=== PATIENT | male | born 1970 | race Caucasian/White ===

== ENCOUNTER 2019-06-16 17:22 | Emergency (ER) | payer MEDICAID ==
[~2019-06-16] VITALS: Ht 185.4 cm; Wt 97.7 kg
[~2019-06-16 17:22] MED LIST: HYDROCODON-ACE1 EAC6 PO; HYDROCODONE-APA1 TAB PO; LISINOPRIL10 MG PO; NEXIUM40 MG PO
[2019-06-16 17:35] VITALS: Ht 185.4 cm; Wt 97.7 kg
[2019-06-16 22:53] LABS: BASOPHILS 1.2 % (0-2); EOSINOPHILS 6.6 % (0-7); HEMATOCRIT 33.3 % (42.0-54.0); HEMOGLOBIN 11.6 g/dL (13.5-17.5); IMMATURE GRANULOCYTES 0.2 % (0-5); LYMPHOCYTES 44.4 % (15-50); MCH 31.7 pg (26.0-34.0); MCHC 34.8 g/dL (31.0-37.0); MEAN PLATELET VOLUME 8.8 fL (7.4-10.4); NEUTROPHILS 38.6 % (40-80); PLATELET COUNT 287 10x3/uL (130-400); RBC 3.66 10x6/uL (4.20-6.10); RDW 12.8 % (11.5-14.5); WBC 6.1 10x3/uL (4.8-10.8)
[2019-06-16 22:59] LABS: APPEARANCE CLEAR (CLEAR); BILIRUBIN NEGATIVE (NEGATIVE); COLOR YELLOW (YELLOW); GLUCOSE NEGATIVE (NEGATIVE); KETONE NEGATIVE (NEGATIVE); NITRITE NEGATIVE (NEGATIVE); PROTEIN NEGATIVE (NEGATIVE); UROBILINOGEN NORMAL (NORMAL)
[2019-06-16 23:11] LABS: ALBUMIN 3.2 g/dL (3.4-5.0); ALKALINE PHOSPHATASE 123 U/L (46-116); ALT (SGPT) 34 U/L (10-68); BILIRUBIN - TOTAL 0.26 mg/dL (0.2-1.3); CALC OSMOLALITY 286 mosm/kg (275-300); CALCIUM 8.2 mg/dL (8.5-10.1); CARBON DIOXIDE 31.3 mmol/L (21.0-32.0); CHLORIDE - SERUM 105 mmol/L (98-107); GLUCOSE 90 mg/dL (74-106); POTASSIUM - SERUM 4.1 mmol/L (3.5-5.1); SODIUM 143 mmol/L (136-145); UREA NITROGEN 17 mg/dL (7-18); eGFR NON AFRICAN AMERICAN 84 mL/min (90-120)
[2019-06-16 23:20] LABS: CREATINE KINASE 201 UL (21-232); THYROID STIMULATING HORMONE 1.73 uIU/mL (0.36-3.74)
[2019-06-17] MEDS ORDERED: MEDROL DOSE PACK4 MG PO (01:01)
[2019-06-17 01:49] VITALS: BP 137/74
== END 2019-06-17 01:50 | disposition home or self-care (01) ==
LOC: D.ER 17:22
PROVIDERS: Family Medicine
DX: M48.061 Spinal stenosis, lumbar region without neurogenic claudication (principal); I10 Essential (primary) hypertension; F17.200 Nicotine dependence, unspecified, uncomplicated

== ENCOUNTER 2019-08-03 14:14 | Emergency (ER) | payer MEDICAID ==
[~2019-08-03] VITALS: Ht 185.4 cm; Wt 95.5 kg
[~2019-08-03 14:14] MED LIST changes: +MEDROL DOSE PACK4 MG PO
[2019-08-03 14:16] VITALS: Ht 185.4 cm; Wt 95.5 kg
[2019-08-03] MEDS ORDERED: BUPRENORPHIN-N1 EACH SL (15:14)
[2019-08-03] MEDS ORDERED: BACLOFEN20 M1 PO (15:52)
[2019-08-03] MEDS ORDERED: VOLTAREN75 MG PO (15:52)
[2019-08-03 16:01] VITALS: BP 168/89
== END 2019-08-03 16:02 | disposition home or self-care (01) ==
LOC: D.ER 14:14
DX: R51 Headache (principal); S09.90XA Unspecified injury of head, initial encounter; Y08.89XA Assault by other specified means, initial encounter

== ENCOUNTER 2019-08-20 21:01 | Emergency (ER) | payer MEDICAID ==
[~2019-08-20] VITALS: Ht 185.4 cm; Wt 93.6 kg
[~2019-08-20 21:01] MED LIST changes: +BACLOFEN20 M1 PO; +BUPRENORPHIN-N1 EACH SL; +VOLTAREN75 MG PO
[2019-08-20 21:05] VITALS: Ht 185.4 cm; Wt 93.6 kg
[2019-08-20 22:02] LABS: BASOPHILS 0.6 % (0-2); EOSINOPHILS 1.7 % (0-7); HEMATOCRIT 39.5 % (42.0-54.0); HEMOGLOBIN 13.2 g/dL (13.5-17.5); IMMATURE GRANULOCYTES 0.3 % (0-5); LYMPHOCYTES 27.7 % (15-50); MCH 31.1 pg (26.0-34.0); MCHC 33.4 g/dL (31.0-37.0); MCV 92.9 fL (80.0-100.0); MEAN PLATELET VOLUME 8.6 fL (7.4-10.4); MONOCYTES 7.7 % (2-11); RBC 4.25 10x6/uL (4.20-6.10); RDW 12.4 % (11.5-14.5); WBC 12.5 10x3/uL (4.8-10.8)
[2019-08-20 22:06] LABS: CALC OSMOLALITY 282 mosm/kg (275-300); CALCIUM 9.2 mg/dL (8.5-10.1); CARBON DIOXIDE 27.2 mmol/L (21.0-32.0); CHLORIDE - SERUM 105 mmol/L (98-107); CREATININE - SERUM 0.9 mg/dL (0.6-1.3); GLUCOSE 94 mg/dL (74-106); POTASSIUM - SERUM 4.5 mmol/L (3.5-5.1); SODIUM 139 mmol/L (136-145); UREA NITROGEN 26 mg/dL (7-18); eGFR NON AFRICAN AMERICAN > 90 mL/min (90-120)
[2019-08-20 22:13] LABS: ALKALINE PHOSPHATASE 115 U/L (46-116); ALT (SGPT) 15 U/L (10-68); BILIRUBIN - TOTAL 0.18 mg/dL (0.2-1.3); PROTEIN - SERUM 7.6 g/dL (6.4-8.2)
[2019-08-20 22:18] LABS: PLATELET COUNT 446 10x3/uL (130-400)
[2019-08-21 00:07] VITALS: BP 134/85
== END 2019-08-21 00:19 | disposition home or self-care (01) ==
LOC: D.ER 21:01
PROVIDERS: Family Medicine
DX: R45.1 Restlessness and agitation (principal); G89.29 Other chronic pain; E86.0 Dehydration; R25.2 Cramp and spasm; F11.23 Opioid dependence with withdrawal; I10 Essential (primary) hypertension; Z72.0 Tobacco use

== ENCOUNTER 2020-01-28 01:19 | Emergency (ER) | payer OTHER ==
[~2020-01-28] VITALS: Ht 185.4 cm; Wt 102.7 kg
[2020-01-28 01:23] VITALS: Ht 185.4 cm; Wt 102.7 kg
[2020-01-28 01:50] LABS: BASOPHILS 0.9 % (0-2); EOSINOPHILS 7.6 % (0-7); HEMOGLOBIN 12.4 g/dL (13.5-17.5); IMMATURE GRANULOCYTES 0.2 % (0-5); LYMPHOCYTES 33.1 % (15-50); MCH 31.9 pg (26.0-34.0); MCHC 32.6 g/dL (31.0-37.0); MCV 97.7 fL (80.0-100.0); MEAN PLATELET VOLUME 8.8 fL (7.4-10.4); MONOCYTES 7.3 % (2-11); NEUTROPHILS 50.9 % (40-80); PLATELET COUNT 333 10x3/uL (130-400); RBC 3.89 10x6/uL (4.20-6.10); RDW 12.9 % (11.5-14.5); WBC 9.7 10x3/uL (4.8-10.8)
[2020-01-28 02:03] LABS: CALC OSMOLALITY 289 mosm/kg (275-300); CALCIUM 8.7 mg/dL (8.5-10.1); CARBON DIOXIDE 32.8 mmol/L (21.0-32.0); CHLORIDE - SERUM 107 mmol/L (98-107); GLUCOSE 106 mg/dL (74-106); SODIUM 143 mmol/L (136-145); UREA NITROGEN 26 mg/dL (7-18); eGFR NON AFRICAN AMERICAN 84 mL/min (90-120)
[2020-01-28] MEDS ORDERED: EPIPEN 2-P0.3 MG/0.3 IM (02:10)
[2020-01-28] MEDS ORDERED: PREDNISONE50 MG PO (02:10)
[2020-01-28 02:11] LABS: ALBUMIN 3.4 g/dL (3.4-5.0); ALKALINE PHOSPHATASE 105 U/L (30-120); ALT (SGPT) 43 U/L (10-68); BILIRUBIN - TOTAL 0.17 mg/dL (0.2-1.3); PROTEIN - SERUM 6.7 g/dL (6.4-8.2)
[2020-01-28 03:36] VITALS: BP 140/77
== END 2020-01-28 03:36 | disposition home or self-care (01) ==
LOC: D.ER 01:19
PROVIDERS: Family Medicine
DX: R21 Rash and other nonspecific skin eruption (principal); T78.40XA Allergy, unspecified, initial encounter; I10 Essential (primary) hypertension